=== PATIENT | female | born 1965 | race African-American/Black ===

== ENCOUNTER 2016-08-26 12:08 | Emergency (ER) | payer BC ==
[~2016-08-26] VITALS: Ht 160 cm; Wt 79.8 kg
--- NOTE | ~2016-08-26 | EKG ---
[address] [place] [facility] [employer] [address] ELECTROCARDIOGRAM REPORT Name: JUVE BURNETT [id number] Admission: 08/26/16 Attend Phys: Discharge: Date of : 69 Report #: [id number] THIS REPORT FOR: //name// [facility] ED Test Date: 2016-08-26 Test Time: 13:35:50 Pat Name: JUVE BURNETT Department: Room: Gender: F [employer] I[employer] Machine: Venu AZEVEDO : 1965 Requested By: Joao Bronson Order Number: [id number] MD: Randal Casper Measurements Intervals [place] Rate: 64 P: 53 TN: 169 QRS: 19 QRSD: 87 T: 104 QT: 426 QTc: 440 Interpretive Statements Sinus rhythm Nonspecific T abnormalities, lateral leads ST elev, probable normal early repol pattern Compared to ECG 10/13/2013 14:57:17 T-wave abnormality now present ST (T wave) deviation now present Sinus tachycardia no longer present Electronically Signed On 08-26-2016 14:42:58 CDT by Randal Casper [email or web address] <ELECTRONICALLY SIGNED> By: Randal Casper MD 08/26/16 1442 1335 1335 Randal Casper MD /EPI
[~2016-08-26 12:08] MED LIST: ALEVE220 M1; BIOTIN5 M1 PO; GLUCOPHAGE500 MG PO; GLUCOTROL5 MG PO; HYDROCHLOROTHIA25 M1 PO; IBUPROFEN 600600 M1 PO; LISINOPRIL10 MG PO; MACROBID 100 M100 M1 PO; METFORMIN HCL500 MG PO; MULTIVITAMINS1 EAC7; NAPROSYN500 MG PO; NORCO 5-325 TA1 EACH PO; PENICILLIN V P500 MG PO; PROVENTIL HFA6.7 G1 INH; TESSALON PERLE100 MG PO; ZPAK PO
[2016-08-26 13:20] LABS: URINE BILIRUBIN NEGATIVE (Negative); URINE BLOOD TRACE (Negative); URINE COLOR YELLOW; URINE GLUCOSE-RANDOM* 3+ (Negative); URINE KETONES NEGATIVE (Negative); URINE NITRITE NEGATIVE (Negative); URINE PROTEIN (DIPSTICK) 2+ (Negative); URINE SPECIFIC GRAVITY 1.025 (1.003-1.035)
[2016-08-26 13:36] LABS: SQUAMOUS >10 Many /LPF (0-3)
[2016-08-26 13:37] LABS: CASTS None Seen /LPF (None Seen)
[2016-08-26 13:38] LABS: BACTERIA 1-9 Few /HPF (None Seen); CRYSTALS None Seen /LPF (None Seen); URINE RBC 0-2 Rare /HPF (0-2); URINE WBC 0-5 Rare /HPF (0-5)
[2016-08-26 14:00] LABS: ABSOLUTE NEUTROPHILS 5.9 thou/uL (1.4-8.2); EOSINOPHILS 2.3 % (0.0-3.0); HEMATOCRIT 40.7 % (37.0-47.0); HEMOGLOBIN 13.6 gm/dL (12.0-15.0); LYMPHOCYTES 20.8 % (24.0-44.0); MCH 29.4 pg (26.0-34.0); MCHC 33.5 g/dL (28.0-37.0); MCV 87.8 fL (80.0-100.0); MONOCYTES 7.8 % (1.0-8.0); PLATELET COUNT 321 thou/uL (150-400); POLYS 68.1 % (36.0-66.0); RBC 4.64 mil/uL (4.20-5.00); WBC 8.7 thou/uL (4.0-11.0)
[2016-08-26 14:02] LABS: MANUAL DIFF NO
[2016-08-26 14:14] LABS: ANION GAP 6 mmol/L (7-16); BUN 23 mg/dL (7-18); CHLORIDE 103 mmol/L (98-107); CO2 28 mmol/L (21-32); CREATININE 0.9 mg/dL (0.6-1.0); GLUCOSE 136 mg/dL (74-106); POTASSIUM 3.8 mmol/L (3.5-5.1); SODIUM 137 mmol/L (136-145)
[2016-08-26 14:22] LABS: TROPONIN-I < 0.04 ng/mL (<0.04-0.07)
[2016-08-26] MEDS ORDERED: AMLODIPINE BESY10 MG PO (15:39)
[2016-08-26] MEDS ORDERED: LISINOPRIL20 MG PO (15:39)
[2016-08-26 16:12] VITALS: BP 187/108
== END 2016-08-26 16:14 | disposition home or self-care (01) ==
LOC: ER 12:08
PROVIDERS: Emergency Medicine
DX: I10 Essential (primary) hypertension (principal); R53.83 Other fatigue; J45.909 Unspecified asthma, uncomplicated; M19.90 Unspecified osteoarthritis, unspecified site; E11.9 Type 2 diabetes mellitus without complications

== ENCOUNTER 2016-11-08 10:52 | Emergency (ER) | payer BC ==
[~2016-11-08] VITALS: Ht 157.5 cm; Wt 78.0 kg
--- NOTE | ~2016-11-08 | EKG ---
[address] [address] ELECTROCARDIOGRAM REPORT Name: JUVE BURNETT Room #: REG [facility]#: [id number] Admission: 11/08/16 Attend Phys: Discharge: Date of : 69 Report #: [id number] THIS REPORT FOR: //name// [facility] ED Test Date: 2016-11-08 Test Time: 14:47:51 Pat Name: JUVE BURNETT Department: Room: Gender: F [employer] Employee: [employer] : 1965 Requested By: Oneil Hopkins Order Number: [id number] MD: Randal Casper Measurements Intervals [place] Rate: 92 P: 47 SD: 165 QRS: 41 QRSD: 89 T: 55 QT: 396 QTc: 490 Interpretive Statements Sinus rhythm Left atrial enlargement Electronically Signed On 11-08-2016 16:52:53 CDT by Randal Casper [email or web address] <ELECTRONICALLY SIGNED> By: Randal Casper MD 11/08/16 1652 1447 1447 Randal Casper MD /EPI
[~2016-11-08 10:52] MED LIST changes: +AMLODIPINE BESY10 MG PO; +LISINOPRIL20 MG PO
[2016-11-08] MEDS ORDERED: [UNRECOGNIZED DRUG - OTHER] PO (11:15)
[2016-11-08] MEDS ORDERED: [UNRECOGNIZED DRUG - OTHER] PO (11:15)
[2016-11-08] MEDS ORDERED: PREDNISONE 20 M20 MG PO (14:32)
[2016-11-08 15:12] LABS: HEMATOCRIT 33.7 % (37.0-47.0); HEMOGLOBIN 11.2 gm/dL (12.0-15.0); MCH 28.9 pg (26.0-34.0); MCHC 33.1 g/dL (28.0-37.0); MCV 87.4 fL (80.0-100.0); RBC 3.86 mil/uL (4.20-5.00); RDW 13.2 % (10.5-14.5); WBC 7.2 thou/uL (4.0-11.0)
[2016-11-08 15:25] LABS: ANION GAP 6 mmol/L (7-16); BUN 19 mg/dL (7-18); CHLORIDE 101 mmol/L (98-107); CO2 30 mmol/L (21-32); CREATININE 1.1 mg/dL (0.6-1.0); GLUCOSE 199 mg/dL (74-106); POTASSIUM 3.2 mmol/L (3.5-5.1); SODIUM 137 mmol/L (136-145)
[2016-11-08 15:32] LABS: TROPONIN-I < 0.04 ng/mL (<0.04-0.07)
[2016-11-08 15:52] VITALS: BP 198/74
== END 2016-11-08 17:30 | disposition home or self-care (01) ==
LOC: ER 10:52
PROVIDERS: Emergency Medicine
DX: J45.901 Unspecified asthma with (acute) exacerbation (principal); I10 Essential (primary) hypertension; E11.9 Type 2 diabetes mellitus without complications; M19.90 Unspecified osteoarthritis, unspecified site

== ENCOUNTER 2017-02-26 12:11 | Inpatient (IN) | payer BC ==
[~2017-02-26] VITALS: Ht 157.5 cm; Wt 82.1 kg
--- NOTE | ~2017-02-26 | EKG ---
[address] [address] ELECTROCARDIOGRAM REPORT Name: JUVE BURNETT Room #: 358-P ADM IN M.R.#: [id number] Admission: 02/26/17 Attend Phys: Evelyn Concepcion MD Discharge: Date of : 69 Report #: [id number] THIS REPORT FOR: //name// [facility] ED Test Date: 2017-02-26 Test Time: 12:27:17 Pat Name: JUVE BURNETT Department: Room: 358 Gender: F Printing Assistant: artemio : 1965 Requested By: Moriah Resendez Order Number: [id number] MD: Randal Casper Measurements Intervals [place] Rate: 94 P: 36 VT: 174 QRS: 17 QRSD: 83 T: 53 QT: 389 QTc: 487 Interpretive Statements Sinus rhythm Consider left ventricular hypertrophy Compared to ECG 02/25/2017 17:32:34 ST (T wave) deviation no longer present Electronically Signed On 02-26-2017 16:06:04 MATERIALS MANAGER by Randal Casper [email or web address] <ELECTRONICALLY SIGNED> By: Randal Casper MD 02/26/17 1606 1227 1227 Randal Casper MD /EPI
--- NOTE | ~2017-02-26 | 2DMMODE ---
[facility] [address] [place] [address] 2 D/M-MODE ECHOCARDIOGRAM Name: JUVE BURNETT Room #: 358-P ADM IN M.R.#: [id number] Admission: 02/26/17 Attend Phys: Evelyn Concepcion Discharge: Date of : 69 Date of Service: 02/28/17 0932 Report #: [id number] THIS REPORT FOR: //name// APPROVED REPORT Study performed: 02/28/2017 09:40:46 EXAM: Comprehensive 2D, Doppler, and color-flow Echocardiogram Patient Location: Echo lab Room #: 358 Status: routine BSA: 1.83 HR: 94 bpm BP: 196/95 mmHg Rhythm: NSR Other Information Study Quality: Good Indications Elevated BNP, rule out CHF. Short of breath, chest tightness. Hx: HLP, HTN, DM 2D Dimensions RVDd: 40.12 mm LVEF(%): 55.79 (>50%) IVSd: 13.18 (7-11mm) LVOT Diam: 20.35 (18-24mm) LVDd: 46.05 mm PWd: 13.71 (7-11mm) Ascending Ao: 28.27 (22-36mm) LVDs: 32.69 (25-40mm) Aortic Root: 29.77 mm Bedoya's LVEF: 55.79 % Volumes Left Atrial Volume (Systole) Single Plane 4CH: 76.14 mL Single Plane 2CH: 76.16 mL LA ESV Index: 45.00 mL/m2 Aortic Valve AoV Peak Angelito.: 1.75 m/s AO Peak Gr.: 12.25 mmHg LVOT Max P.42 mmHg LVOT Max V: 1.27 m/s JESSICA Vmax: 2.35 cm2 Mitral Valve E/A Ratio: 1.6 [facility] [email or web address] [address] 2 D/M-MODE ECHOCARDIOGRAM Name: JUVE BURNETT Room #: 358-P [facility] IN M.R.#: [id number] Admission: 02/26/17 Attend Phys: Evelyn Concepcion Discharge: Date of : 69 Date of Service: 02/28/17 0932 Report #: [id number] MV Decel. Time: 151.71 ms MV E Max Angelito.: 1.24 m/s MV A Angelito.: 0.79 m/s MV PHT: 44.00 ms IVRT: 44.98 ms Pulmonary Valve PV Peak Angelito.: 1.30 m/s PV Peak Gr.: 6.80 mmHg Pulmonary Vein P Vein S: 0.61 m/s P Vein D: 0.92 m/s P Vein S/D Ratio: 0.66 Tricuspid Valve TR Peak Angelito.: 3.56 m/s RAP Estimate: 15.00 mmHg TR Peak Gr.: 50.77 mmHg PA Pressure: 66.00 mmHg Left Ventricle The left ventricle is normal size. There is normal LV segmental wall motion. Mild to moderate concentric left ventricular hypertrophy. Left ventricular systolic function is normal. LVEF is 55-60%. The left ventricular diastolic function is normal. Right Ventricle The right ventricle is normal size. The right ventricular systolic function is normal. Atria Left atrium is moderately dilated. Right atrium is mildly dilated. Aortic Valve The aortic valve is normal in structure. No aortic regurgitation is present. There is no aortic valvular stenosis. Mitral Valve The mitral valve is normal in structure. Trace mitral regurgitation. No evidence of mitral valve stenosis. Tricuspid Valve The tricuspid valve is normal in structure. Mild to moderate tricuspid regurgitation. Estimated PAP is 66mmHg. Pulmonic Valve [address] [address] 2 D/M-MODE ECHOCARDIOGRAM Name: JUVE BURNETT Room #: 358-P [facility] IN ..#: [id number] Admission: 02/26/17 Attend Phys: Evelyn Concepcion Discharge: Date of : 69 Date of Service: 02/28/17 0932 Report #: [id number] The pulmonary valve is normal in structure. Trace pulmonic regurgitation. Great Vessels The aortic root is normal in size. The ascending aorta is normal in size. IVC is dilated and collapses <50% with inspiration. Pericardium Trivial pericardial effusion noted. <Conclusion> Left ventricular systolic function is normal. Mild to moderate concentric left ventricular hypertrophy. There is normal LV segmental wall motion. LVEF 55-60%. Both atria are dilated. The aortic valve is normal in structure. No stenosis or insufficiency The mitral valve is normal in structure. Trace mitral regurgitation. Pulmonary artery pressure of 66mmHg Trivial pericardial effusion noted. <ELECTRONICALLY SIGNED> By: Michael Vaughn MD, [facility] 02/28/17931 1 1 Michael Vaughn MD, FACC /INF
--- NOTE | ~2017-02-26 | H ---
[facility] [place] [address] HISTORY AND PHYSICAL Name: JUVE BURNETT Room #: 358-P ADM IN M.R.#: [id number] Admission: 02/26/17 Attend Phys: Evelyn Concepcion MD Discharge: Date of : 69 Report #: [id number] THIS REPORT FOR: //name// CC: Mariel Concepcion DATE OF SERVICE: 02/26/2017 CHIEF COMPLAINT: Shortness of breath and tiredness. HISTORY OF PRESENT ILLNESS: The patient is a 51-year-old female with history of mild asthma, who came to the hospital with progressively worsening shortness of breath. The patient apparently was seen in the Emergency Room yesterday, but she decided to leave AMA. This morning, the patient returned back to the Emergency Room with worsening of shortness of breath. The patient states that her symptoms started about 4 or 5 days ago. She denies fevers. She states that her energy level has also been very low. She has developed dry cough. While in the Emergency Room, ABG showed pO2 of 73. For further evaluation, the patient had CT angiography of the chest that showed bilateral multifocal pneumonia. Chest x-ray confirmed the same, although chest x-ray yesterday was unremarkable. BNP also has been significantly elevated. In the Emergency Room, the patient was also found to have accelerated hypertension, and she was treated with labetalol. Blood sugar is in 500s. PAST MEDICAL HISTORY: 1. Diabetes mellitus type 2. 2. Hypertension. 3. Mild asthma. HOME MEDICATIONS: The patient is supposed to take amlodipine 10 mg a day, and she ran out of this medication a while ago, glipizide 5 mg a day, Jardiance, lisinopril 10 mg a day, metformin and insulin Lantus 10 units at night. FAMILY HISTORY: Reviewed and not pertinent to the patient's current condition. SOCIAL HISTORY: The patient works as a email marketing coordinator. She does not smoke cigarettes and does not drink alcohol. REVIEW OF SYSTEMS: As above in HPI section. All others negative. PHYSICAL EXAMINATION: GENERAL: The patient is healthy looking young female who is in no apparent [address] [address] HISTORY AND PHYSICAL Name: JUVE BURNETT Room #: 358-P [facility] IN [facility]#: [id number] Admission: 02/26/17 Attend Phys: Evelyn Concepcion MD Discharge: Date of : 69 Report #: [id number]. VITAL SIGNS: Her blood pressure now is 175/91, from 229/133 earlier. Heart rate is 82, respiration is 18, temperature is 98.5. HEENT: Pupils are equal. Eye movements are normal. The patient has anicteric sclerae. NECK: Supple. Oral mucosa is moist. The patient has no thyromegaly. RESPIRATORY: Respiratory sounds are coarse, but patient has no wheezes or crackles. CARDIOVASCULAR: The patient has regular rhythm and rate. She has no murmurs, gallops or rubs. GASTROINTESTINAL: Abdomen is soft, nondistended and nontender. Bowel sounds are present. Hepatosplenomegaly is not palpated. MUSCULOSKELETAL: The patient has no joint deformities. Range of motion is normal. EXTREMITIES: She has no edema, cyanosis or clubbing. SKIN: The patient has no skin lesions. Skin is dry and warm. NEUROLOGIC: The patient is alert and oriented x 3. Her examination is nonfocal. LABORATORY DATA: On basic metabolic profile, electrolytes are normal. Blood glucose is 510, from 414 yesterday. Electrolytes are normal. On CBC, white count is 11.2, hemoglobin is 11.3, hematocrit is 34.1, platelets 341. test is negative. ASSESSMENT AND PLAN: 1. Community-acquired pneumonia, involving bilateral lobes. The patient is started on Rocephin and azithromycin. That will be continued unchanged. Blood culture is ordered. Symptomatic treatment will be continued. 2. Accelerated hypertension. Suspect overall poor blood pressure control, given the patient's left ventricular hypertrophy based on EKG. Amlodipine will be resumed. Lisinopril dose will be increased. The patient will be treated with hydralazine as needed. 3. Elevated BNP, likely due to accelerated hypertension. We will obtain cardiac echo for further evaluation. 4. Diabetes mellitus type 2, suspect poor control. Check hemoglobin A1c. Currently, the patient has hyperglycemia. She received 10 units of insulin in the Emergency Room. Continue IV fluids. Use intensive insulin regimen while the patient is here. No oral medications at this time. 5. Deep venous thrombosis prophylaxis. SubQ Jennifernox. By: 1453 1556 Evelyn Concepcion MD /nt
[~2017-02-26 12:11] MED LIST changes: +LEVAQUIN 750 M750 MG PO; +PREDNISONE 20 M20 MG PO; +TOUJEO SOL300 UNIT/1 SUBQ; +[UNRECOGNIZED DRUG - OTHER] PO; +[UNRECOGNIZED DRUG - OTHER] PO
[2017-02-26 12:14] VITALS: BP 229/133
[2017-02-26 13:04] LABS: EOSINOPHILS 2.7 % (0.0-3.0); HEMATOCRIT 34.1 % (37.0-47.0); HEMOGLOBIN 11.3 gm/dL (12.0-15.0); LYMPHOCYTES 10.9 % (24.0-44.0); MCH 28.3 pg (26.0-34.0); MCHC 33.1 g/dL (28.0-37.0); MCV 85.4 fL (80.0-100.0); MONOCYTES 5.5 % (1.0-8.0); PLATELET COUNT 341 thou/uL (150-400); POLYS 79.9 % (36.0-66.0); RDW 13.4 % (10.5-14.5); WBC 11.2 thou/uL (4.0-11.0)
[2017-02-26 13:09] LABS: MANUAL DIFF NO
[2017-02-26 13:11] LABS: CALCIUM 8.8 mg/dL (8.5-10.1); CREATININE 1.1 mg/dL (0.6-1.0); POTASSIUM 4.1 mmol/L (3.5-5.1)
[2017-02-26 14:49] VITALS: BP 208/117
[2017-02-26 16:54] VITALS: BP 184/100
[2017-02-26 19:25] VITALS: BP 175/91
[2017-02-26 23:00] VITALS: BP 203/102
[2017-02-27] VITALS (7 sets, daily range): BP systolic 154–194; BP diastolic 71–100
[2017-02-27 23:05] LABS: GLYCOHEMOGLOBIN (HGB A1C) 8.8 % (4.8-5.6)
[2017-02-28 01:16] VITALS: BP 182/94
[2017-02-28 05:04] VITALS: BP 178/87
[2017-02-28 05:19] LABS: ABSOLUTE NEUTROPHILS 12.6 thou/uL (1.4-8.2); BASOPHILS 0.7 % (0.0-2.0); EOSINOPHILS 1.9 % (0.0-3.0); HEMATOCRIT 33.2 % (37.0-47.0); HEMOGLOBIN 10.8 gm/dL (12.0-15.0); LYMPHOCYTES 13.2 % (24.0-44.0); MCH 28.1 pg (26.0-34.0); MCHC 32.5 g/dL (28.0-37.0); MCV 86.3 fL (80.0-100.0); MONOCYTES 5.4 % (1.0-8.0); PLATELET COUNT 371 thou/uL (150-400); POLYS 78.8 % (36.0-66.0); RBC 3.85 mil/uL (4.20-5.00); RDW 13.6 % (10.5-14.5)
[2017-02-28 05:26] LABS: MANUAL DIFF NO
[2017-02-28 05:27] LABS: CALCIUM 8.5 mg/dL (8.5-10.1); CREATININE 0.8 mg/dL (0.6-1.0); POTASSIUM 3.6 mmol/L (3.5-5.1)
[2017-02-28 06:05] VITALS: BP 182/90
[2017-02-28 07:15] VITALS: BP 196/95
[2017-02-28 12:02] VITALS: BP 187/92
[2017-02-28 13:11] LABS: GLYCOHEMOGLOBIN (HGB A1C) 9.5 % (4.8-5.6)
[2017-02-28 19:16] VITALS: BP 161/75
[2017-02-28 20:08] LABS: IgA 319 mg/dL (87-352); IgG 1015 mg/dL (700-1600); IgM 34 mg/dL (26-217)
[2017-03-01] VITALS (8 sets, daily range): BP systolic 137–188; BP diastolic 62–113
[2017-03-01 06:40] LABS: ABSOLUTE NEUTROPHILS 10.7 thou/uL (1.4-8.2); BASOPHILS 0.8 % (0.0-2.0); EOSINOPHILS 3.8 % (0.0-3.0); HEMATOCRIT 33.7 % (37.0-47.0); HEMOGLOBIN 11.2 gm/dL (12.0-15.0); LYMPHOCYTES 15.8 % (24.0-44.0); MCH 28.5 pg (26.0-34.0); MCHC 33.3 g/dL (28.0-37.0); MCV 85.7 fL (80.0-100.0); MONOCYTES 6.3 % (1.0-8.0); PLATELET COUNT 403 thou/uL (150-400); POLYS 73.3 % (36.0-66.0); RBC 3.93 mil/uL (4.20-5.00); WBC 14.6 thou/uL (4.0-11.0)
[2017-03-01 06:43] LABS: MANUAL DIFF NO
[2017-03-01 06:55] LABS: CALCIUM 8.7 mg/dL (8.5-10.1); CREATININE 0.8 mg/dL (0.6-1.0)
[2017-03-01 07:13] LABS: HIV ANTIBODY Non Reactive (Non Reactive)
[2017-03-02 04:02] VITALS: BP 160/79
[2017-03-02 07:06] VITALS: BP 171/76
[2017-03-02 09:17] LABS: ABSOLUTE NEUTROPHILS 10.6 thou/uL (1.4-8.2); BASOPHILS 0.9 % (0.0-2.0); EOSINOPHILS 2.6 % (0.0-3.0); HEMATOCRIT 38.4 % (37.0-47.0); HEMOGLOBIN 12.4 gm/dL (12.0-15.0); LYMPHOCYTES 12.9 % (24.0-44.0); MCHC 32.3 g/dL (28.0-37.0); MCV 86.6 fL (80.0-100.0); MONOCYTES 5.8 % (1.0-8.0); PLATELET COUNT 456 thou/uL (150-400); POLYS 77.8 % (36.0-66.0); RBC 4.43 mil/uL (4.20-5.00); RDW 14.2 % (10.5-14.5); WBC 13.6 thou/uL (4.0-11.0)
[2017-03-02 09:18] LABS: MANUAL DIFF NO
[2017-03-02 09:37] LABS: CALCIUM 9.4 mg/dL (8.5-10.1); CREATININE 0.8 mg/dL (0.6-1.0); POTASSIUM 3.5 mmol/L (3.5-5.1)
[2017-03-02 11:33] VITALS: BP 184/86
[2017-03-02 12:28] VITALS: BP 148/80
[2017-03-02] MEDS ORDERED: AZITHROMYCIN 2250 MG PO (13:16)
[2017-03-02] MEDS ORDERED: CEFDINIR300 MG PO (13:16)
[2017-03-02] MEDS ORDERED: BYSTOLIC2.5 MG PO (13:16)
[2017-03-02] MEDS ORDERED: AMLODIPINE BESY10 MG PO (13:17)
[2017-03-02 14:13] VITALS: BP 148/80
[2017-03-02 23:10] LABS: INFLUENZA B Negative (Negative); METAPNEUMOVIRUS Negative (Negative)
== END 2017-03-02 15:25 | disposition home or self-care (01) | DRG 195 ==
LOC: ER 12:11 → 3W 13:07 → EROBS 13:07 → 3W 14:16 → ENTRNSPT 03-02 15:01 → 3W 03-02 15:25
PROVIDERS: Emergency Medicine; Family Medicine; Internal Medicine Endocrinology, Diabetes & Metabolism; Specialist
DX: J18.9 Pneumonia, unspecified organism (principal); I10 Essential (primary) hypertension; J45.909 Unspecified asthma, uncomplicated; M19.90 Unspecified osteoarthritis, unspecified site; I16.0 Hypertensive urgency; E11.65 Type 2 diabetes mellitus with hyperglycemia; E78.5 Hyperlipidemia, unspecified; Z79.899 Other long term (current) drug therapy
CPT/HCPCS: 10779

== ENCOUNTER 2017-04-08 09:50 | Emergency (ER) | payer BC ==
[~2017-04-08] VITALS: Ht 157.5 cm; Wt 80.7 kg
[~2017-04-08 09:50] MED LIST changes: +AZITHROMYCIN 2250 MG PO; +BYSTOLIC2.5 MG PO; +CEFDINIR300 MG PO
[2017-04-08 10:00] VITALS: BP 223/123
[2017-04-08] MEDS ORDERED: TESSALON PERLE100 MG PO (11:09)
== END 2017-04-08 11:38 | disposition home or self-care (01) ==
LOC: ER 09:50
DX: J06.9 Acute upper respiratory infection, unspecified (principal); I10 Essential (primary) hypertension; J45.909 Unspecified asthma, uncomplicated; M19.90 Unspecified osteoarthritis, unspecified site; E11.9 Type 2 diabetes mellitus without complications; Z79.4 Long term (current) use of insulin

== ENCOUNTER 2017-05-09 09:32 | Emergency (ER) | payer BC ==
[~2017-05-09] VITALS: Ht 157.5 cm; Wt 83.9 kg
[2017-05-09 10:51] LABS: URINE BILIRUBIN NEGATIVE (Negative); URINE BLOOD 1+ (Negative); URINE CLARITY CLEAR; URINE COLOR YELLOW; URINE GLUCOSE-RANDOM* 3+ (Negative); URINE KETONES NEGATIVE (Negative); URINE LEUKOCYTES TRACE (Negative); URINE NITRITE NEGATIVE (Negative); URINE PROTEIN (DIPSTICK) 2+ (Negative); URINE SPECIFIC GRAVITY 1.015 (1.005-1.035); URINE UROBILINOGEN 0.2 E.U./dl (0.2-1.0)
[2017-05-09 11:01] LABS: HEMATOCRIT 45.6 % (37.0-47.0); HEMOGLOBIN 15.2 gm/dL (12.0-15.0); MCH 28.4 pg (26.0-34.0); MCHC 33.3 g/dL (28.0-37.0); MCV 85.5 fL (80.0-100.0); RBC 5.34 mil/uL (4.20-5.00); RDW 14.3 % (10.5-14.5); WBC 5.5 thou/uL (4.0-11.0)
[2017-05-09 11:05] LABS: CALCIUM 9.6 mg/dL (8.5-10.1); POTASSIUM 3.8 mmol/L (3.5-5.1)
[2017-05-09 11:11] LABS: ALBUMIN 2.8 g/dL (3.4-5.0); TOTAL BILIRUBIN 0.4 mg/dL (<0.1-1.0); TOTAL PROTEIN 7.5 g/dL (6.4-8.2)
[2017-05-09 11:19] LABS: SQUAMOUS 4-10 Moderate /LPF (0-3); URINE RBC 3-10 Few /HPF (0-2); URINE WBC 0-5 Rare /HPF (0-5)
[2017-05-09 11:20] LABS: BACTERIA 1-9 Few /HPF (None Seen); CASTS None Seen /LPF (None Seen); CRYSTALS None Seen /LPF (None Seen)
[2017-05-09] MEDS ORDERED: ANTIVERT25 MG PO ×2 (11:54→11:57)
[2017-05-09] MEDS ORDERED: GLUCOTROL5 MG PO ×2 (11:54→11:56)
[2017-05-09] MEDS ORDERED: LISINOPRIL10 MG PO ×2 (11:54→11:56)
[2017-05-09] MEDS ORDERED: KEFLEX500 M1 PO ×2 (11:54→11:55)
[2017-05-09 12:02] VITALS: BP 168/92
== END 2017-05-09 12:04 | disposition home or self-care (01) ==
LOC: ER 09:32
PROVIDERS: Physician Assistant
DX: E11.65 Type 2 diabetes mellitus with hyperglycemia (principal); H81.10 Benign paroxysmal vertigo, unspecified ear; N39.0 Urinary tract infection, site not specified; I10 Essential (primary) hypertension; J45.909 Unspecified asthma, uncomplicated; M19.90 Unspecified osteoarthritis, unspecified site; Z79.4 Long term (current) use of insulin

== ENCOUNTER 2017-08-08 13:56 | Emergency (ER) | payer BC ==
[~2017-08-08] VITALS: Ht 165.1 cm; Wt 70.3 kg
--- NOTE | ~2017-08-08 | EKG ---
[place] [address] [facility] [place] [address] ELECTROCARDIOGRAM REPORT Name: JUVE BURNETT Room #: REG [facility]#: [id number] Admission: 08/08/17 Attend Phys: Discharge: Date of : 69 Report #: [id number] THIS REPORT FOR: //name// [facility] ED Test Date: 2017-08-08 Test Time: 15:08:01 Pat Name: JUVE BURNETT Department: Room: Gender: F Affiliate Manager: MZOOK : 1965 Requested By: Chet Munson Order Number: [id number] MD: Randal Casper Measurements Intervals [place] Rate: 84 P: 44 [place]: 176 QRS: 29 QRSD: 91 T: 91 QT: 414 QTc: 490 Interpretive Statements Sinus rhythm Probable left atrial enlargement Probable left ventricular hypertrophy Nonspecific T abnormalities, lateral leads Anterior ST elevation, probably due to LVH Compared to ECG 02/26/2017 12:27:17 Electronically Signed On 08-08-2017 15:49:40 CDT by Randal Casper [email or web address] <ELECTRONICALLY SIGNED> By: Randal Casper MD 08/08/17 1549 1508 1508 Randal Casper MD /BETSY
[~2017-08-08 13:56] MED LIST changes: +ANTIVERT25 MG PO; +KEFLEX500 M1 PO
[2017-08-08 14:57] LABS: ABSOLUTE NEUTROPHILS 6.8 thou/uL (1.4-8.2); BASOPHILS 1.1 % (0.0-2.0); EOSINOPHILS 2.9 % (0.0-3.0); HEMATOCRIT 41.4 % (37.0-47.0); HEMOGLOBIN 13.9 gm/dL (12.0-15.0); LYMPHOCYTES 18.6 % (24.0-44.0); MCH 29.1 pg (26.0-34.0); MCHC 33.7 g/dL (28.0-37.0); MCV 86.4 fL (80.0-100.0); MONOCYTES 5.5 % (1.0-8.0); PLATELET COUNT 323 thou/uL (150-400); POLYS 71.9 % (36.0-66.0); RBC 4.79 mil/uL (4.20-5.00); RDW 12.6 % (10.5-14.5); WBC 9.4 thou/uL (4.0-11.0)
[2017-08-08 15:06] LABS: URINE BILIRUBIN NEGATIVE (Negative); URINE BLOOD 1+ (Negative); URINE CLARITY CLEAR; URINE COLOR YELLOW; URINE GLUCOSE-RANDOM* 3+ (Negative); URINE KETONES NEGATIVE (Negative); URINE LEUKOCYTES-REFLEX NEGATIVE (Negative); URINE NITRITE-REFLEX NEGATIVE (Negative); URINE PROTEIN (DIPSTICK) 2+ (Negative); URINE SPECIFIC GRAVITY 1.025 (1.005-1.035); URINE UROBILINOGEN 0.2 E.U./dl (0.2-1.0)
[2017-08-08 15:11] LABS: ANION GAP 8 mmol/L (7-16); BUN 18 mg/dL (7-18); CALCIUM 9.1 mg/dL (8.5-10.1); CHLORIDE 101 mmol/L (98-107); CO2 28 mmol/L (21-32); CREATININE 0.9 mg/dL (0.6-1.0); GLUCOSE 348 mg/dL (74-106); POTASSIUM 3.3 mmol/L (3.5-5.1); SODIUM 137 mmol/L (136-145)
[2017-08-08 15:14] LABS: CASTS None Seen /LPF (None Seen); CRYSTALS None Seen /LPF (None Seen); SQUAMOUS 4-10 Moderate /LPF (0-3)
[2017-08-08 15:15] LABS: BACTERIA-REFLEX 1-9 Few /HPF (None Seen); URINE RBC 0-2 Rare /HPF (0-2); URINE WBC-REFLEX 0-5 Rare /HPF (0-5)
[2017-08-08 15:17] LABS: INR 1.1; PROTIME 10.9 Seconds (9.3-11.4)
[2017-08-08 15:19] LABS: ALBUMIN 2.9 g/dL (3.4-5.0); MAGNESIUM 1.6 mg/dL (1.8-2.4); SGOT 27 U/L (15-37); SGPT 66 U/L (30-65); TOTAL BILIRUBIN 0.4 mg/dL (<0.1-1.0); TOTAL PROTEIN 7.1 g/dL (6.4-8.2); TROPONIN-I < 0.04 ng/mL (<0.06)
[2017-08-08] MEDS ORDERED: LISINOPRIL20 MG PO (15:51)
[2017-08-08] MEDS ORDERED: PREDNISONE 20 M20 MG PO (15:51)
[2017-08-08] MEDS ORDERED: CLONIDINE0.1 PO (15:55)
[2017-08-08 15:57] LABS: ANISOCYTOSIS 1+; HYPOCHROMASIA 2+; POLYCHROMASIA OCCASIONAL
== END 2017-08-08 17:00 | disposition home or self-care (01) ==
LOC: ER 13:56
PROVIDERS: Emergency Medicine
DX: J98.11 Atelectasis (principal); I10 Essential (primary) hypertension; E11.9 Type 2 diabetes mellitus without complications; J45.901 Unspecified asthma with (acute) exacerbation; E87.6 Hypokalemia; M19.90 Unspecified osteoarthritis, unspecified site; Z79.4 Long term (current) use of insulin

== ENCOUNTER 2018-06-17 08:28 | Emergency (ER) | payer BC ==
[~2018-06-17] VITALS: Ht 160 cm; Wt 77.1 kg
[~2018-06-17 08:28] MED LIST changes: +CLONIDINE0.1 PO
[2018-06-17] MEDS ORDERED: NORFLEX100 MG PO (09:03)
[2018-06-17] MEDS ORDERED: NAPROSYN500 MG PO (09:03)
[2018-06-17 10:03] VITALS: BP 163/86
== END 2018-06-17 10:22 | disposition home or self-care (01) ==
LOC: ER 08:28
DX: G89.29 Other chronic pain (principal); M54.42 Lumbago with sciatica, left side; M54.41 Lumbago with sciatica, right side; I10 Essential (primary) hypertension; J45.909 Unspecified asthma, uncomplicated; M19.90 Unspecified osteoarthritis, unspecified site; E11.9 Type 2 diabetes mellitus without complications; Z79.4 Long term (current) use of insulin; Z79.899 Other long term (current) drug therapy